=== PATIENT | female | born 1980 | race African-American/Black ===

== ENCOUNTER → 2016-10-26 | Outpatient (CLI) | payer OTHER ==
[2016-04-10 20:08] VITALS: BP 181/86
--- NOTE | 2016-10-26 15:19 | KCIC ---
Examination: Ultrasound pelvis HISTORY History of pelvic pain, dyspareunia, post coital bleeding. COMPARISON None available. FINDINGS The uterus measures 10.9 x 4.8 x 6.3 centimeters. The right ovary measures 3.2 x 2.4 x 3.0 centimeters. The left ovary measures 2.4 x 1.5 x 2.2 centimeters. There is a cystic structure identified in the right ovary measuring 2.4 x 2.0 x 2.5 centimeter. Few complex appearing nabothian cysts identified in the cervix. The endometrium measures 8.2 millimeters in transverse dimension. Blood flow identified in the right and left ovaries. IMPRESSION 1. Few complexes appearing cystic structures identified in the cervix likely nabothian cysts. 2. 2.5 centimeters cystic structure identified in the right ovary likely a cyst or follicle. Close interval followup examination is recommended. Electronically signed by: Ant Guadalupe (Oct 26, 2016 15:18:03)
== END | disposition home or self-care (01) ==
LOC: KCIC US 10:20
PROVIDERS: ATTEND Nurse Practitioner Women's Health
DX: N83.291 Other ovarian cyst, right side (principal); N94.10 Unspecified dyspareunia; N93.0 Postcoital and contact bleeding; N88.8 Other specified noninflammatory disorders of cervix uteri
CPT/HCPCS: 76830; 76856

== ENCOUNTER 2017-02-03 15:27 | Emergency (ER) | payer OTHER ==
[2017-02-03 15:40] VITALS: BP 147/77
[2017-02-03] MEDS ORDERED: CEPH500C PO (16:00)
--- NOTE | 2017-02-03 16:01 | PHYS DOC ---
Past Medical History Past Medical History: Anxiety, Asthma, Bipolar, Other Additional Past Medical Histor: PTSD Past Surgical History: Tubal ligation, Other Additional Past Surgical Histo: Mursupal (pocket inside vaginal wall) Alcohol Use: Rarely Drug Use: Marijuana Adult General Chief Complaint Chief Complaint: SORE THROAT HPI HPI Patient is a 36 year old female presents to the emergency department stating that she has had sore throat for the last 2 days. She has had fever in which she has been taking tylenol for. She also has a son that is here with the same symptoms. Review of Systems Review of Systems Constitutional: hx fever Eyes: Denies change in visual acuity, redness, or eye pain [] HENT: Denies nasal congestion C/o sore throat [] Respiratory: Denies cough or shortness of breath [] Cardiovascular: No additional information not addressed in HPI [] GI: Denies abdominal pain, nausea, vomiting, bloody stools or diarrhea [] : Denies dysuria or hematuria [] Musculoskeletal: Denies back pain or joint pain [] Integument: Denies rash or skin lesions [] Neurologic: Denies headache, focal weakness or sensory changes [] Allergies Allergies Allergies Coded Allergies Type Severity Reaction Last Updated Verified Latex, Natural Rubber Allergy Severe RASH, SWELLING 09/01/15 Yes Penicillins Allergy Intermediate 02/06/15 Yes Physical Exam Physical Exam Constitutional: Well developed, well nourished, no acute distress, non-toxic appearance. [] HENT: Normocephalic, atraumatic, bilateral external ears normal, oropharynx moist, no oral exudates, nose normal. Bilateral tympanic membranes appear to be normal. Patient with erythematous and bilateral tonsils with exudate noted. Eyes: PERRLA, EOMI, conjunctiva normal, no discharge. [] Neck: Normal range of motion, no tenderness, supple, no stridor. [] Cardiovascular:Heart rate regular rhythm, no murmur [] Lungs & Thorax: Bilateral breath sounds clear to auscultation [] Skin: Warm, dry, no erythema, no rash. [] Back: No tenderness Extremities: No tenderness, no cyanosis, no clubbing, ROM intact, no edema. [] Neurologic: Alert and oriented X 3, normal motor function, normal sensory function, no focal deficits noted. [] Psychologic: Affect normal, judgement normal, mood normal. [] Current Patient Data Vital Signs Vital Signs Date Time Temp Pulse Resp B/P Pulse Ox O2 Delivery O2 Flow Rate FiO2 02/03/17 15:40 98.1 99 18 99 Room Air 98.1 EKG EKG [] Radiology/Procedures Radiology/Procedures [] Course & Med Decision Making Course & Med Decision Making Pertinent Labs and Imaging studies reviewed. (See chart for details) Rapid strep was negative. Patient will be placed on Keflex for strep throat. Encourage plenty of fluids. Tylenol or ibuprofen for fever chills generalized body aches and discomfort. Patient will be discharged home in stable condition signs and symptoms to return back to emergency department as been provided. Dragon Disclaimer Dragon Disclaimer This electronic medical record was generated, in whole or in part, using a voice recognition dictation system. Departure Departure Impression: Primary Impression: Pharyngitis Disposition: HOME, SELF-CARE Condition: STABLE Referrals: MARCO SOTELO MD (PCP) Patient Instructions: Viral and Bacterial Pharyngitis, [id number]-[id number] Additional Instructions: Rapid strep results were negative. Culture will be obtained. Medication as prescribed. Tylenol or ibuprofen for fever chills or generalized body aches and discomfort. Drink plenty of fluids. Follow-up primary care physician in the next 7-10 days. Return back to emergency prior signs and symptoms of become worse. Scripts Cephalexin 500 Mg Capsule1 Cap PO BID #20 CAP Prov:ANTWON AGUILAR APRN 02/03/17 ANTWON AGUILAR APRN Feb 03, 2017 16:01
[2017-02-04 08:13] LABS: NEGATIVE OBC STREP NEG; POSITIVE OBC STREP POS
== END 2017-02-03 16:07 | disposition home or self-care (01) ==
LOC: ER 15:27
DX: J02.9 Acute pharyngitis, unspecified (principal); F41.9 Anxiety disorder, unspecified; J45.909 Unspecified asthma, uncomplicated; F43.10 Post-traumatic stress disorder, unspecified; F12.10 Cannabis abuse, uncomplicated; Z88.0 Allergy status to penicillin; Z91.040 Latex allergy status
CPT/HCPCS: 87070; 87880; 99284

== ENCOUNTER 2017-06-16 21:55 | Emergency (ER) | payer OTHER ==
[~2017-06-16] VITALS: Ht 149.9 cm; Wt 97.5 kg
[2017-06-16 21:55] VITALS: BP 148/83
[~2017-06-16 21:55] MED LIST: CEPH500C PO
[2017-06-16] MEDS ORDERED: CLIN150C14 PO (22:27)
[2017-06-16] MEDS ORDERED: TRAM-48 PO (22:27)
--- NOTE | 2017-06-16 22:27 | PHYS DOC ---
Past Medical History Past Medical History: Anxiety, Asthma, Bipolar, Other Additional Past Medical Histor: PTSD Past Surgical History: Tubal ligation, Other Additional Past Surgical Histo: Mursupal (pocket inside vaginal wall) Alcohol Use: Rarely Drug Use: Marijuana Adult General Chief Complaint Chief Complaint: DENTAL PROBLEM HPI HPI Patient is a 36 year old female who presents with dental pain that began yesterday. Patient denies any fever or trismus. She states she has tried following up with a dentist but nobody is taking her insurance. Review of Systems Review of Systems Constitutional: See history of present illness HENT: Dental pain Musculoskeletal: Denies back pain or joint pain [] Integument: Denies rash or skin lesions [] Neurologic: Denies headache, focal weakness or sensory changes [] Allergies Allergies Allergies Coded Allergies Type Severity Reaction Last Updated Verified Latex, Natural Rubber Allergy Severe RASH, SWELLING 09/01/15 Yes Penicillins Allergy Intermediate 02/06/15 Yes Physical Exam Physical Exam Constitutional: Well developed, well nourished, no acute distress, non-toxic appearance. [] HENT: Normocephalic, atraumatic, bilateral external ears normal, oropharynx moist, no oral exudates, nose normal. [] Patient has small amount of dental caries on the right premolars no gum redness , no gum swelling. Skin: Warm, dry, no erythema, no rash. [] Extremities: No tenderness, no cyanosis, no clubbing, ROM intact, no edema. [] Neurologic: Alert and oriented X 3, normal motor function, normal sensory function, no focal deficits noted. [] Psychologic: Affect normal, judgement normal, mood normal. [] Current Patient Data Vital Signs Vital Signs Date Time Temp Pulse Resp B/P (MAP) Pulse Ox O2 Delivery O2 Flow Rate FiO2 06/16/17 21:55 98.0 79 16 99 Room Air 98.0 EKG EKG [] Radiology/Procedures Radiology/Procedures [] Course & Med Decision Making Course & Med Decision Making Pertinent Labs and Imaging studies reviewed. (See chart for details) Patient has dental pain and dental caries. Discharged with Ultram and clindamycin. Follow-up with her own dentist in one week. Dragon Disclaimer Dragon Disclaimer This electronic medical record was generated, in whole or in part, using a voice recognition dictation system. Departure Departure Impression: Primary Impression: Dentalgia Additional Impression: Dental caries Disposition: HOME, SELF-CARE Condition: STABLE Referrals: MARCO SOTELO MD (PCP) Please follow-up with a dentist in the 1 week Patient Instructions: Dental Caries Additional Instructions: You were seen for dental pain, take the prescribed antibiotics until completed. Follow-up with your dentist as soon as possible Scripts Tramadol Hcl (ULTRAM) 50 Mg Tablet 1 TAB PO Q6HRS, #30 TAB Prov: EDI RENE APRN 06/16/17 Clindamycin Hcl (CLINDAMYCIN HCL) 150 Mg Capsule 3 CAP PO TID, #90 CAP Prov: EDI RENE APRN 06/16/17 Problem Qualifiers EDI RENE APRN Jun 16, 2017 22:27
== END 2017-06-16 22:38 | disposition home or self-care (01) ==
LOC: ER 21:55
DX: K08.89 Other specified disorders of teeth and supporting structures (principal); K02.9 Dental caries, unspecified; F31.9 Bipolar disorder, unspecified; J45.909 Unspecified asthma, uncomplicated; F43.10 Post-traumatic stress disorder, unspecified; Z88.0 Allergy status to penicillin; Z91.040 Latex allergy status
CPT/HCPCS: 99283